=== PATIENT | female | born 1940 | race American Indian/Alaskan Native ===

== ENCOUNTER 2021-01-18 15:29 | Emergency (ER) | payer MEDICARE ==
[~2021-01-18] VITALS: Ht 162.6 cm; Wt 77.3 kg
[2021-01-18 15:30] VITALS: BP 0/0
[2021-01-18] MEDS ORDERED: CALCIUM GLUCONATE 100 MG/ML 10 ML IVP ONE (15:33)
[2021-01-18] MEDS ORDERED: EPINEPHrine 1:10,000 [1 MG/10 ML] SYRINGE IVP ONE (15:33)
[2021-01-18] MEDS ORDERED: 0.9% SODIUM CHLORIDE 10 ML SYRINGE IVP ONE (15:33)
[2021-01-18] MEDS ORDERED: ATROPINE SULFATE 0.1 MG/ML 10 ML SYRINGE IVP ONE (15:33)
[2021-01-18] MEDS ORDERED: 0.9% SODIUM CHLORIDE 1,000 ML BAG IV ONE (15:33)
[2021-01-18] MEDS ORDERED: DEXTROSE 50%-WATER 25 GM/50 ML SYRINGE IVP ONE (15:33)
[2021-01-18] MEDS ORDERED: SODIUM BICARBONATE [ADULT] 8.4% 50 MEQ/50 ML SYRINGE IVP ONE (15:33)
[2021-01-18 16:31] LABS: COVID AG,FIA SOURCE NASOPHARYNGEAL
== END 2021-01-18 18:45 ==
LOC: EMS 15:32
DX: I46.9 Cardiac arrest, cause unspecified (principal); F17.210 Nicotine dependence, cigarettes, uncomplicated; I49.9 Cardiac arrhythmia, unspecified; Z20.822 Contact with and (suspected) exposure to COVID-19
CPT/HCPCS: 31500; 82962; 87426; 92950; 93005; 99291; J0171; J0461; J0610; J3490; J7030; U0003; 94002